=== PATIENT | male | born 1965 | race Caucasian/White ===

== ENCOUNTER → 2019-01-17 | Outpatient (CLI) | payer BC ==
--- NOTE | 2019-01-17 13:41 | PCVCIMAG ---
APPROVED REPORT Study performed: 01/17/2019 11:27:19 Exam: Stress Echocardiogram Indication: Abnormal EKG, Dyspnea Patient Location: Echo lab Stress Nurse: Marilyn Arriaga RN Status: routine Ht: 5 ft 10 in HR: 76 bpm BP: 134/86 mmHg Rhythm: NSR Medical History Medical History: Diabetes, Hyperlipidemia Procedure The patient underwent an Exercise Stress Test using the Gera Protocol. Blood pressure, heart rate, and EKG were monitored. An Echocardiogram was performed by printer repair technician in four stages in quad fashion. At peak stress, four selected images were obtained and placed side by side with resting images for comparison. Stress Test Details Stress Test: Exercise stress testing was performed using a Gera protocol. HR Resting HR: 76 bpmMax Heart Rate (APMHR): 168 bpm Max HR Achieved: 164 bpmTarget HR (85% APMHR): 142 bpm % of APMHR: 97 Recovery HR: 104 bpm HR response to stress: Normal HR response to stress BP Resting BP: 134/86 mmHg Max BP: 208/90 mmHg Recovery BP: 166/86 mmHg BP response to stress: Normal blood pressure response to stress. ECG Resting ECG: Sinus Rhythm Stress ECG: Sinus Rhythm Recovery ECG: Sinus Rhythm Clinical Reason for Termination: Maximal effort Exercise duration: 6 min 36 sec Highest Stage Achieved: Stage 3: 3.4 mph at 14% grade. Exercise capacity: 8.80 METs Overall Exercise Capacity for Age: Average Stress ECG Conclusion ECG: Non-ischemic Clinical: Non-ischemic Pre-Stress Echo The resting Echocardiogram showed normal left ventricular contractility with an estimated Ejection Fraction of about >55%. Normal wall motion in all segments on baseline images. Normal color doppler. No regurgitation or stenosis present on pulmonic, mitral, tricuspid or aortic valves. Post-Stress Echo The stress Echocardiogram showed normal left ventricular contractility with an estimated Ejection Fraction of about 60-65%. Normal augmentation of wall motion in all segments on post stress images. Clinical No clinical or ECG evidence for ischemia. Conclusion Clinical Response: Non-ischemic Exercise Capacity: Average Stress ECG Response: Non-ischemic Stress Echo Images: Non-ischemic The left ventricle is normal in size and wall thickness in both the rest and stress images. No clinical, EKG or echocardiographic evidence for ischemia. Other Information Study Quality: Adequate <Conclusion> The left ventricle is normal in size and wall thickness in both the rest and stress images. No clinical, EKG or echocardiographic evidence for ischemia.
== END | disposition home or self-care (01) ==
LOC: PCVCIMAG 11:56
PROVIDERS: ATTEND Internal Medicine Cardiovascular Disease
DX: E11.9 Type 2 diabetes mellitus without complications (principal); E78.5 Hyperlipidemia, unspecified; R07.89 Other chest pain
CPT/HCPCS: 93325; 93351